=== PATIENT | male | born 2000 | race Caucasian/White ===

== ENCOUNTER 2022-04-02 19:16 | Emergency (ER) | payer MEDICAID ==
[2022-04-02] MEDS ORDERED: IBUPROFEN 600 MG TABLET PO STA (19:20)
--- NOTE | 2022-04-02 19:23 | ED Physician Documentation ---
History of Present Illness - Stated complaint Stated Complaint: Withdraw - Additonal information Additional information: 22-year-old male presents emergency department for evaluation of fevers cough congestion and body aches. Symptoms began today. He is currently at [facility] for fentanyl use. He denies any family history of sudden or early cardiac at a young age. He is a daily tobacco/vaper. pt states that he had to start smoking cigarettes because they would not allow access to vape Review of Systems Constitutional: reports: Fever, Myalgias, Fatigue Eyes: reports: Reviewed and negative Nose: reports: Congestion Cardiac: reports: Chest pain / pressure. denies: Palpitations, Pedal edema, Calf pain Respiratory: denies: Dyspnea GI: reports: Reviewed and negative : reports: Reviewed and negative PD ED PE NORMAL - General General: Alert and oriented X 3, No acute distress, Well developed/nourished - HEENT HEENT: Atraumatic, Moist mucous membranes - Neck Neck: Supple, no meningeal sign, No adenopathy - Cardiac Cardiac: RRR, No murmur - Respiratory Respiratory: No respiratory distress, Clear bilaterally - Abdomen Abdomen: Normal bowel sounds, Soft - Derm Derm: Normal color, Warm and dry, No rash - Extremities Extremities: No deformity, No tenderness to palpate, Normal ROM s pain - Neuro Neuro: Alert and oriented X 3, shredder tender peat 2-12 intact Eye Opening: Spontaneous Motor: Obeys Commands Verbal: Oriented GCS Score: 15 Results - EKG (time done) 192 Rate: Rate (enter#) (117) Rhythm: Sinus tachycardia [place]: Normal Intervals: Normal VT QRS: Normal Ischemia: Normal ST segments Compare to prior EKG: Old EKG unavailable Computer interpretation: Agree with computer - Rads (name of study) cxr Radiology: EMP read indepedently (No acute cardiopulmonary process) PD MEDICAL DECISION MAKING - ED course Complexity details: reviewed results, considered differential, d/w patient ED course: 22-year-old male presents to the emergency department from [facility] [place] facility for evaluation of chest pain, cough fevers body aches. He is febrile here at one 1.9. I suspect an influenza like illness though deferred testing today. The patient is convinced he has the flu. His EKG is sinus tach but no ischemia. Given his young age ACS is unlikely. He will be discharged back To [facility] however it is likely that they will discharge him from their treatment facility given the concern for flulike illness Departure - Departure Disposition: 01 Home, Self Care Clinical Impression: Flu-like symptoms Instructions: ED Viral Syndrome Comments: Campbell you were seen today in the emergency department because while [place] you developed fevers, body aches, headaches and chest pain. You are not having a heart attack. Your chest x-ray is normal and does not show findings of pneumonia. Your EKG is just slightly fast and that is likely due to some anxiety and fever. As we discussed at the bedside your symptoms are most consistent with a viral or even flulike illness. At this time however you are stable for discharge from the emergency department. We are discharging you back to [facility]. I wish you well in your recovery
--- NOTE | 2022-04-02 19:47 | XRAY Report ---
PROCEDURE: Chest 1 View X-Ray INDICATIONS: chest pain TECHNIQUE: One view of the chest was acquired. COMPARISON: None. FINDINGS: Surgical changes and devices: None. Lungs and pleura: No pleural effusions or pneumothorax. Lungs are clear. Mediastinum: Mediastinal contours appear normal. Heart size is normal. Bones and chest wall: No suspicious bony lesions. Overlying soft tissues appear unremarkable. IMPRESSION: No acute cardiopulmonary disease. Reviewed by: Dandre Lopez MD on 04/02/2022 7:46 PM PST Approved by: Dandre Lopez MD on 04/02/2022 7:46 PM PST Station ID: [id number]
[2022-04-02 21:21] VITALS: BP 118/66
== END 2022-04-02 21:21 | disposition home or self-care (01) ==
LOC: ED 19:16
DX: R50.9 Fever, unspecified (principal); M79.10 Myalgia, unspecified site; R53.83 Other fatigue; R09.81 Nasal congestion; R07.89 Other chest pain; R00.0 Tachycardia, unspecified; F17.200 Nicotine dependence, unspecified, uncomplicated
CPT/HCPCS: 71045; 93005; 99282; 99283; A9270

== ENCOUNTER → 2022-04-02 | Outpatient (CLI) | payer MEDICAID | END | disposition critical access hospital (66) | LOC: EMS 18:55 | DX: R07.9 Chest pain, unspecified (principal); R00.0 Tachycardia, unspecified | CPT/HCPCS: A0425; A0429; A0999 ==